=== PATIENT | male | born 1965 | race Caucasian/White ===

== ENCOUNTER 2017-12-31 17:39 | Observation (INO) | payer OTHER ==
[2017-12-31] MEDS ORDERED: NS 0.9% 1000 ML* 1,000 ML IV ONE (18:16)
[2017-12-31] MEDS ORDERED: Iohexol 350* (CONTRAST) 500 ML MDV IV ONE (18:43)
--- NOTE | 2017-12-31 19:11 | RAD ---
INDICATION: Confusion COMPARISON: External CT examination of provided TECHNIQUE: Axial source images were acquired with coronal and sagittal reconstructions. CT angiographic technique was utilized with injection of 8.4 mL Omnipaque 350. FINDINGS: Aortic arch: There are no CT angiogram abnormalities of the arch or the great vessels arising from the arch. Right carotid: The common carotid artery, carotid bifurcation, extracranial portions of the internal carotid artery, carotid artery at the skull base, carotid siphon, and carotid termination appear normal. Left carotid:The common carotid artery, carotid bifurcation, extracranial portions of the internal carotid artery, carotid artery at the skull base, carotid siphon, and carotid termination appear normal. Right middle and anterior cerebral arteries: There are no CT angiographic abnormalities of the middle or anterior cerebral arteries. Left middle and anterior cerebral arteries: There are no CT angiographic abnormalities of the middle or anterior cerebral arteries Right vertebral: The CT angiographic appearance of the vertebral artery is normal. Left vertebral: The CT angiographic appearance of the vertebral artery is normal. Basilar artery: The basilar artery is very tortuous at its origin but appears widely patent. No specific CT abnormalities are identified on the multiplanar reconstruction images. Posterior cerebral arteries: The distal distribution of the right and left posterior cerebral arteries is normal. [place]: The CT angiographic appearance of the [place] is normal. Source images show no evidence of mass or adenopathy within the neck. There are no focal brain parenchymal abnormalities or abnormal areas of enhancement. IMPRESSION: No definitive CT angiographic abnormalities. CPT II Codes: 3100F [facility]
[2017-12-31] MEDS ORDERED: Acetaminophen TAB* 325 MG PO ONE (20:05)
[2017-12-31] MEDS ORDERED: hydrALAZINE IV* 20 MG/ML VIAL IV SLOW PU PRN (20:28)
[2017-12-31] MEDS ORDERED: Thiamine IV 100 MG, Folic Acid IV* 1 MG, Multiple Vitamin IV ADULT* 10 ML in D5NS 0.9% ... IV ONE (20:28)
[2017-12-31] MEDS ORDERED: Ondansetron 40 MG VIAL* 2 MG/ML 20 ML VIAL IV PRN (20:28)
[2017-12-31] MEDS ORDERED: Aspirin 81 mg CHEW TAB* 81 MG TAB.CHEW PO ONE (20:45)
[2017-12-31] MEDS ORDERED: hydrALAZINE IV* 20 MG/ML VIAL ONE (20:53)
[2017-12-31] MEDS ORDERED: Nicotine Patch Removal NOTE PATCH OFF SCH (21:00)
[2017-12-31] MEDS ORDERED: LORazepam TAB(*) 1 MG PO SCH (21:00)
--- NOTE | 2017-12-31 21:31 | RAD ---
INDICATION: MRI screening COMPARISON: None TECHNIQUE: Pascual and lateral views of the orbits were acquired FINDINGS: Orbits: There is no evidence of intraorbital metallic density foreign body. Other: None IMPRESSION: no metallic intraorbital foreign body
--- NOTE | 2017-12-31 21:39 | ED ---
Manuel Green Tenzin, scribed for Terry Alva MD on 12/31/17 at 1834 . Headache - HPI Summary HPI Summary: Pt is a 52 years old male transferred from [facility] c/o HERNANDEZ and " feeling off" that was present when he woke up this morning. The headache is frontal and he has not been given acetaminophen. Pt has also been wearing this brace on his leg that gave him a bruise. Pt denies any focal weakness, numbness , and confusion. Pt denies abdominal pain. The patient was transferred for a CT with contrast, as this was unable to be done at [facility]. - History Of Current Complaint Chief Complaint: EDNeurologicalDeficit Stated Complaint: TRANSFER FROM [facility] Time Seen by Provider: 12/31/17 18:02 Hx Obtained From: Patient Onset/Duration: Gradual Onset Initially Headache Was: Mild Currently Pain Is: Mild Timing: Constant Location of Headache: Frontal Aggravating Factor: Nothing Allevating Factors: Nothing Associated Signs And Symptoms: Other (Noted In Comments) - feeling off - Allergies/Home Medications Allergies/Adverse Reactions: Allergies Allergy/AdvReac Type Severity Reaction Status Date / Time No Known Allergies Allergy Verified 12/31/17 17:51 Home Medications: Home Medications Carvedilol TAB* [Coreg TAB*] 12.5 mg PO BID 12/31/17 [History Confirmed 12/31/17 ] PMH/Surg Hx/FS Hx/Imm Hx Infectious Disease History: No Infectious Disease History: Denies: Traveled Outside the [place] in Last 30 Days - Family History Known Family History: Positive: Other - CVA - Social History Alcohol Use: Weekly Substance Use Type: Reports: None Smoking Status (MU): Current Every Day Smoker Review of Systems Negative: Fever Positive: Headache. Negative: Weakness All Other Systems Reviewed And Are Negative: Yes Physical Exam - Summary Physical Exam Summary: General: well-appearing, no pain distress Skin: warm, color reflects adequate perfusion, dry Head: normal Eyes: EOMI, HONG ENT: normal Neck: supple, nontender Respiratory: CTA, breath sounds present Cardiovascular: RRR Abdomen: soft, nontender Bowel: present Musculoskeletal: Patient has ecchymosis in his inner left and posterior leg that measures 6cm by 20 cm diameter. Strength/ROM intact Neurological: sensory/motor intact, A&O x3 Psychological: affect/mood appropriate Triage Information Reviewed: Yes Vital Signs On Initial Exam: Initial Vitals Temp Pulse Resp BP Pulse Ox 97.8 F 90 16 159/102 98 12/31/17 17:50 12/31/17 17:50 12/31/17 17:50 12/31/17 17:50 12/31/17 17:50 Vital Signs Reviewed: Yes Diagnostics - Vital Signs Vital Signs Temp Pulse Resp BP Pulse Ox 12/31/17 18:00 81 11 98 12/31/17 17:54 85 14 169/103 98 12/31/17 17:53 20 12/31/17 17:50 97.8 F 90 16 159/102 98 - Laboratory Lab Statement: Any lab studies that have been ordered have been reviewed, and results considered in the medical decision making process. - CT CTA Head/Neck CT Interpretation: No Acute Changes CT Interpretation Completed By: Radiologist - Impression: No definitive CT angiographic abnormalities. Dr. Alva reviewed the report. Headache Course/Dx - Course Course Of Treatment: DISCUSSED WITH DR HART, NEUROLOGY. ADMIT HOSPITALIST. CRITICAL CARE TIME LESS THAN 30 MINUTES. - Diagnoses Provider Diagnoses: TIA (transient ischemic attack) Discharge - Sign-Out/Discharge Documenting (check all that apply): Discharge/Admit/Transfer - Discharge Plan Condition: Stable Disposition: ADMITTED TO [facility] - Billing Disposition and Condition Condition: STABLE Disposition: [facility] The documentation as recorded by the Manuel bond Tenzin accurately reflects the service I personally performed and the decisions made by me, Terry Alva MD.
--- NOTE | 2017-12-31 22:02 | RAD ---
INDICATION: Headaches COMPARISON: CTA head and neck same date TECHNIQUE: sagittal T1 FLAIR, axial diffusion, axial T1 FLAIR, axial T2, axial T2 FLAIR, and SWI images were acquired. FINDINGS: Craniocervical junction: The craniocervical junction appears normal. Ventricles/sulci: There are mild cortical involutional changes. Brain parenchyma: There are moderate T2-weighted hyperintensities in the periventricular and subcortical white matter consistent with chronic microvascular ischemia. There are subtle, tiny, pontine hyperintensities also consistent with chronic change. Diffusion weighted images show no evidence of acute ischemia. Intracranial hemorrhage: There is no intracranial hemorrhage. Extra-axial spaces: There are no extra-axial fluid collections or masses. Orbits: There are no MR abnormalities of the orbital structures. Paranasal sinuses/mastoid: The paranasal sinuses are clear. The mastoid air cells are well aerated.. Vascular: No abnormalities are seen. Other: None IMPRESSION: ATROPHY WITH CHRONIC MICROVASCULAR ISCHEMIC CHANGE. NO FINDINGS OF ACUTE ISCHEMIA
[2017-12-31] MEDS: Carvedilol TAB* 6.25 MG PO SCH (22:47)
[2017-12-31] MEDS: Heparin VIAL(*) 5000 UNITS/ML VIAL (FIVE THOUSAND) SUBCUT SCH (22:50)
--- NOTE | 2017-12-31 23:00 | HP ---
CC: Dr. Bergman * HISTORY AND PHYSICAL: DATE OF ADMISSION: 12/31/17 PRIMARY CARE PROVIDER: None. ATTENDING PHYSICIAN WHILE IN THE HOSPITAL: Renita Caba DO * (report dictated by Lui Miner NP) CONSULTING NEUROLOGIST: Aron Bergman MD CHIEF COMPLAINT: 1. Difficulty with speech. 2. Confusion. HISTORY OF PRESENT ILLNESS: Mr. Goodwin is a 52-year-old male patient, who has a history of smoking, tobacco abuse, history of hypertension and he does binge drink on the weekends. He comes in to our ER today stating that this morning, he woke up, he was trying to go to work and he said he fell off, and I asked him to elaborate on this. 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 I asked him to explain this, he days says that I know a quarter is 0.25 and he could not think of that and could not do that, he was confused. He was having trouble and having difficulty with essentially cognition. He says his speech was clear, he had no facial drooping, he had no trouble walking, he just fell off. He denies having any loss of consciousness, seizure. He says days leading up to this, he had been feeling well. He has not been having any chest pain, shortness of breath; no fevers, chills. No vomiting or nausea. No reports of dysuria or frequency. He went initially to [facility] this morning. They evaluated him and it was noted that at CT scan there was concern for his basilar artery. He was sent here to the [facility] for CTA and further neurological evaluation. He is evaluated in the ER today. Again, he is saying he was feeling well perhaps when he woke up this morning, he was feeling off and feeling disconnected. Denied having any focal weaknesses. There was concern for possible TIA. We were asked to evaluate for admission. PAST MEDICAL HISTORY: Significant for: 1. Hypertension. 2. Tobacco abuse. 3. ETOH abuse. PAST SURGICAL HISTORY: 1. He has had an appendectomy. 2. He has had a right knee arthroscopy x2. 3. Hernia repair. MEDICATIONS: Home meds include: 1. Carvedilol 12.5 mg p.o. twice a day. 2. Aleve 1 tablet twice a day as needed. ALLERGIES TO MEDICATIONS: Include PENICILLIN G. FAMILY HISTORY: Mother had hypertension and stomach cancer. Father had history of diabetes and colon cancer. SOCIAL HISTORY: He is a smoker. He has been smoking for 35 years. He smokes about half a pack a day. He does drink alcohol heavily on the weekend basis, he says. He denies any recreational drug abuse. Surrogate decision maker is his sister. REVIEW OF SYSTEMS: There is no documented fever. He denies having any significant weight change. There was no double vision. There is no ear discharge. He denies having any rhinorrhea. There was no sore throat. No thyroid enlargement. Denies having any chest pain. There is no orthopnea. There is no nocturnal dyspnea. He denies having any abdominal pain. There was no nausea, no vomiting. No dysuria, no frequency. No seizure. No loss of consciousness. No pruritus, no skin ulceration. Review of 14 systems completed , all others negative. PHYSICAL EXAMINATION GENERAL: At this time, Mr. Goodwin is a 52-year-old male patient. He is sitting in the ED stretcher. He does not appear to be in any acute distress. VITAL SIGNS: Current vital signs, blood pressure 161/118, pulse 76, respirations 18, O2 sat 97%, temperature 97.8. HEENT: Head: Atraumatic, normocephalic. Eyes: EOMs are intact. Sclerae are anicteric and not pale. Throat: Oral mucosa appears to be moist. No oropharyngeal erythema. NECK: Supple. LUNGS: Clear to auscultation bilaterally. No wheezes, rales, or rhonchi. HEART: Sounds S1, S2. Regular rate and rhythm. No murmurs, rubs, or gallops. ABDOMEN: Soft. It was flat, nontender. Bowel sounds were present. EXTREMITIES: Pulses were 2+ throughout. He is moving all 4 extremities with 5/ 5 strength. NEUROLOGIC: The patient is awake, he is alert, he is oriented x3. His speech is clear. Vkbzfy-pr-atez intact bilaterally. Cranial nerves II through XII were intact. His rojoqq-ch-qgcq, xnln-tz-osyd intact bilaterally. Tobacco Wrapping Machine Tender equal. Tongue is midline. Speech was clear. No facial drooping. No gross focal deficits were seen. SKIN: His skin was grossly intact. DIAGNOSTIC STUDIES/LAB DATA: In [place] he had an EKG which did show a normal sinus rhythm rate of 80. No ST elevations or T wave inversions were noted. CT brain showed very ectatic and hyperattenuating dense basilar artery, question physiologic hyperdensity or thrombus. The patient also had a chest x-ray, impression: No acute cardiopulmonary disease. He did have labs at [facility]: Sodium 139, potassium 2.8, chloride 105, bicarb 27, BUN 10, creatinine 0.70, glucose 191, calcium 8.5, mag 1.9. Total bili 0.4. AST 19, ALT 27. Troponin 0. Alk phos 37. CK 258, CK-MB 4.2. Albumin 3.7. D-dimer negative. INR 0.88. PTT 25. WBC of 3.7, RBC of 4.41, hemoglobin of 13.5, hematocrit 43, platelet count 228. Alcohol level 210. Old medical records reviewed. ASSESSMENT AND PLAN: Mr. Goodwin is a 52-year-old male patient coming in to the emergency department today initially transferred from [facility] for concerns of an abnormal CT. He underwent the CTA today. Our CTA today was read as a normal impression. 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 We were asked to evaluate for admission. He will be admitted under observation status for: 1. Altered mental status. There was concern for transient ischemic attack, but I suspect that alcohol intoxication is probably the contributing factor to his symptoms this morning, but because he is a smoker, has history of hypertension, I do think that we should get an MRI and an echo with bubble study tomorrow. I will place the patient on aspirin. Try to get better blood pressure control and we will treat him for blood pressures systolics greater than 200, diastolics greater than 110. I am going to go ahead and give him some hydralazine and carvedilol down here in the ED. Continue to follow. 2. Ethanol abuse. Again at this point, his alcohol level is 210 this morning. This is probably contributing to his symptoms. I will go ahead and put him on [facility] protocol and I will give him some thiamine and folic acid. Check a B12 level as well. 3. Hypertension. Again, not well controlled. In the setting of possible transient ischemic attack, I will let it run high and I will treat for systolics greater than 200, diastolics greater than 110 is what I will treat for. I did order his carvedilol and p.r.n. hydralazine. 4. Altered mental status. I also did order aspirin. 5. DVT prophylaxis. I have ordered SCDs. 6. Code status. Full code. 7. Tobacco abuse. I did order nicotine and encouraged cessation. 8. Fluids, electrolytes, and nutrition. Healthy diet. TIME SPENT: On the admission was approximately 60 minutes, greater than half the time was spent [id number] with the patient obtaining my history and physical; other half time was spent going over the plan of care with the patient and implementing plan of care. I did discuss the plan of care with my attending, Dr. Caba; she is in agreement. LUI MINER, NIKOLAS [id number]/CPS #: [id number] NANCY
[2018-01-01] MEDS: Acetaminophen TAB* 325 MG PO PRN ×2 (00:01→08:02)
[2018-01-01 05:48] LABS: ABS Basophils 0 10^3/ul (0-0.2); ABS Eosinophils 0.1 10^3/ul (0-0.6); ABS Lymphocytes 1.2 10^3/ul (1.0-4.8); ABS Monocytes 0.7 10^3/ul (0-0.8); ABS Neutrophils 3.2 10^3/ul (1.5-7.7); ABS Nucleated RBC 0 10^3/ul; Eosinophil % 1.8 % (0-6); Hematocrit 41 % (42-52); Hemoglobin 14.2 g/dl (14.0-18.0); Lymphocyte % 22.9 % (25-47); Mean Corpuscular HGB Conc 35 g/dl (31-36); Mean Corpuscular Hemoglobin 35 pg (27-31); Mean Corpuscular Volume 99 fL (80-94); Mean Platelet Volume 7.8 um3 (7.4-10.4); Nucleated Red Blood Cells % 0; Platelet Count 205 10^3/ul (150-450); Red Blood Count 4.07 10^6/ul (4.0-5.4); Red Cell Distribution Width 13 % (10.5-15); White Blood Count 5.2 10^3/ul (3.5-10.8)
[2018-01-01 06:01] LABS: EGFR Non-African American 112.8 (>60)
[2018-01-01 06:03] LABS: INR 0.87 (0.77-1.02)
[2018-01-01] MEDS: Heparin VIAL(*) 5000 UNITS/ML VIAL (FIVE THOUSAND) SUBCUT SCH ×2 (06:16→13:35)
[2018-01-01] MEDS: Carvedilol TAB* 6.25 MG PO SCH (07:14)
[2018-01-01] MEDS ORDERED: Carvedilol TAB* 6.25 MG PO SCH (07:33)
--- NOTE | 2018-01-01 07:45 | PN ---
Subjective Date of Service: 01/01/18 Interval History: No more sx's. He states he was drinking the night before his admission but doesn't know how much. He states he was in alcohol rehab 30 yrs ago. Objective Active Medications: Acetaminophen (Tylenol Tab*) 650 mg PO Q4H PRN PRN Reason: PAIN Last Admin: 01/01/18 00:01 Dose: 650 mg Aspirin (Aspirin Ec Tab*) 81 mg PO DAILY [facility] Last Admin: 01/01/18 07:14 Dose: 81 mg Folic Acid (Folvite Tab*) 1 mg PO DAILY [facility] Last Admin: 01/01/18 07:14 Dose: 1 mg Heparin Sodium (Porcine) (Heparin Vial(*)) 5,000 units SUBCUT Q8HR [facility] Last Admin: 01/01/18 06:16 Dose: 5,000 units Lorazepam (Ativan Tab(*)) 0 - 6 mg PO .PER [facility] PROTOCOL [facility] PRN Reason: Protocol Multivitamins/Minerals (Theragran/Minerals Tab*) 1 tab PO DAILY [facility] Last Admin: 01/01/18 07:14 Dose: 1 tab Nicotine (Nicotine Patch 21 Mg/24 Hr*) 1 patch TRANSDERM DAILY@0800 [facility] Ondansetron HCl (Zofran 40 Mg Vial*) 4 mg IV Q6H PRN PRN Reason: NAUSEA Pharmacy Profile Note (Nicotine Patch Removal Note*) 1 note PATCH OFF 2100 [facility] Last Admin: 12/31/17 22:50 Dose: Not Given Thiamine HCl (Vitamin B-1 Tab*) 100 mg PO DAILY [facility] Last Admin: 01/01/18 07:14 Dose: 100 mg Vital Signs - 8 hr 01/01/18 01/01/18 01/01/18 00:00 00:19 02:00 Temperature 98.1 F Pulse Rate 82 Respiratory 16 16 16 Rate Blood Pressure 149/95 (mmHg) O2 Sat by Pulse 99 Oximetry 01/01/18 01/01/18 01/01/18 02:09 04:00 04:21 Temperature 97.7 F 97.3 F Pulse Rate 81 73 Respiratory 16 16 16 Rate Blood Pressure 142/97 143/94 (mmHg) O2 Sat by Pulse 99 99 Oximetry 01/01/18 01/01/18 06:00 06:10 Temperature 97.6 F Pulse Rate 79 Respiratory 16 16 Rate Blood Pressure 167/110 (mmHg) O2 Sat by Pulse 100 Oximetry Oxygen Devices in Use Now: None Appearance: Alert, supine in bed. In fair spirits. Looks comfortable. Eyes: No Scleral Icterus Neck: NL Appearance and Movements; NL JVP, No Thyroid Enlargement, Masses Respiratory: Symmetrical Chest Expansion and Respiratory Effort, Clear to Auscultation, Clear to Percussion Cardiovascular: NL Sounds; No Murmurs; No JVD, RRR, No Edema Extremities: No Edema, No Clubbing, Cyanosis, - Skin: No Rash or Ulcers, No Nodules or Sclerosis, - Neurological: Alert and Oriented x 3, NL Sensation Result Diagrams: 01/01/18 04:42 01/01/18 06:24 Assess/Plan/Problems-Billing Assessment: - Patient Problems (1) Confusion Current Visit: Yes Status: Acute Code(s): R41.0 - DISORIENTATION, UNSPECIFIED SNOMED Code(s): 157526692 Comment: Patient was the only one awake in the house when he got up a 4 AM and drove himself to work. After 2 minutes at work he drove himself to the hospital. MRI and CTA both unremarkable. Echo with bubble study pending. (2) HTN (hypertension) Current Visit: Yes Status: Acute Code(s): I10 - ESSENTIAL (PRIMARY) HYPERTENSION SNOMED Code(s): 17647912 Comment: Patient recalls being on carvedilol and lisinopril but hasn't take either for about 6 months(?) due to the cost. Start metoprolol and lisinopril. (3) Alcohol abuse Current Visit: Yes Status: Acute Code(s): F10.10 - ALCOHOL ABUSE, UNCOMPLICATED SNOMED Code(s): 90798983 Comment: consult requested. (4) Tobacco abuse Current Visit: Yes Status: Acute Code(s): Z72.0 - TOBACCO USE SNOMED Code( s): 541425852 Comment: Pt advised to quit smoking and avoid second hand smoke. Nicotine patch ordered.
[2018-01-01] MEDS ORDERED: Nicotine PATCH 21 MG/24 HR* PATCH TRANSDERM SCH (08:00)
[2018-01-01] MEDS: Nicotine PATCH 14 MG/24 HR* PATCH TRANSDERM SCH ×2 (08:00→08:01)
[2018-01-01] MEDS ORDERED: Folic Acid TAB* 1 MG PO SCH (09:00)
[2018-01-01] MEDS ORDERED: Multivitamins/Minerals TAB PO SCH (09:00)
[2018-01-01] MEDS ORDERED: Thiamine TAB* 100 MG TAB PO SCH (09:00)
[2018-01-01] MEDS ORDERED: Lisinopril TAB* 5 MG PO SCH (09:00)
[2018-01-01] MEDS ORDERED: Aspirin EC TAB* 81 MG TAB.EC PO SCH (09:00)
[2018-01-01] MEDS ORDERED: Metoprolol Tartrate TAB* 25 MG PO SCH (09:00)
--- NOTE | 2018-01-01 11:40 | CONS ---
CONSULTATION REPORT: DATE OF CONSULT: 01/01/2018. PATIENT OF: [place]. HISTORY OF PRESENT ILLNESS: A 52-year-old right-handed man who I was asked to consult on for an episode of confusion yesterday morning when he went to work. He said he was unable to do fractions which he usually does on a daily basis. He had other cognitive issues, but his speech was clear and he had no focal deficits. He was seen at [facility] and was felt to have global confusion and I was contacted about a potentially abnormal basilar artery. I asked the nurse practitioner to send the films to [place] to see if there was abnormality in it and if so, if he needed a CTA, to be sent there rather than [place] since if we needed an intervention for this. He will be ultimately transferred to [place]. I then spoke afterwards to the nurse practitioner at [place], who was unclear as to what [place] had said, but then reconfirmed that they did not think there was any vascular abnormality acutely requiring a CTA. He was therefore transferred here. He still feels a little fussy, but no specific abnormalities. He has never had a prior stroke. PAST MEDICAL HISTORY: His past history is significant for alcohol abuse and he was in rehab years ago. He notes that he was drinking heavily the night before , watching a hockey game and does binge drink on weekends. He also smokes and has hypertension. He has had an appendectomy, right knee arthroscopy, herniorrhaphy. MEDICATIONS: He apparently does not take meds at home, although they are listed as carvedilol 12.5 twice a day and Aleve one twice a day as needed. PRIMARY CARE PHYSICIAN: He has no primary care physician at this point. ALLERGIES: He is allergic to PENICILLIN. FAMILY HISTORY: Mother had hypertension, stomach cancer. Father had diabetes and colon cancer. SOCIAL HISTORY: He smoked for 35 years about half a pack a day. He drinks heavily on weekends. No other substance abuse. He has had no balance problems. No GI bleeding. REVIEW OF SYSTEMS: Negative in all 14 spheres other than in HPI. PHYSICAL EXAM: Temperature 97.8, pulse 77, respirations 16, blood pressure 149/ 94. He is alert and oriented with normal speech and comprehension. Cranial nerves II through XII are intact. Fundi shows sharp discs. Motor exam reveals normal tone, strength, coordination, and gait. Romberg is minimally unsteady. Sensation was intact to light touch. Reflexes were trace to 1 with downgoing toes. Finger-to- nose was intact. Chest: Clear. Cardiovascular: Regular rate and rhythm. Abdomen is soft with positive bowel sounds. There was no liver fat. DIAGNOSTIC STUDIES/LAB DATA: I reviewed his MRI scan, which showed some significant atrophy including in his cerebellum and some chronic microvascular ischemic changes. There was no acute stroke. His CTA was done and was normal. A CBC with a hematocrit of 41, MCV of 99. INR normal. LDL 47, vitamin B12 of 284. Sodium was 138. He has had an echo that is pending. Of note, he had an alcohol level at [facility] 210. IMPRESSION AND PLAN: Mr. Goodwin most likely drunk when he came into [facility] and it sounds like he has an ongoing chronic alcohol problem. His MRI scan in this setting most likely especially with cerebellar atrophy noted in somebody who is 52 probably represents chronic alcoholism. This is not a story of stroke. He has had some white matter disease on his MRI scan and he is only 52 and this probably represents mostly his chronic hypertension and tobacco use. I discussed with him that his cigarette smoking and drinking is likely causing changes on his brain, which can cause significant debility and neurologic problems as time goes by. My strongest recommendation is he gets a general medical doctor as outpatient to treat his hypertension, to help him with smoking cessation and to help him with his alcohol issues. He does not want rehab at this time. Discussed with the white matter disease, it would be reasonable for him to be on a baby aspirin if he follows with a doctor as outpatient so that if and when he develops GI issues that can be reassessed. The alcoholism puts him at risk for GI bleeding. I do not want to give him aspirin if there are signs that he may actually be at high risk for that. I discussed the case with Dr. Preciado. Thank you for sharing this case. [id number]/[facility] #: [id number] NANCY
--- NOTE | 2018-01-01 12:22 | ECHO ---
Patient: CHAD GUADALUPE [facility] Rec#: [id number] : 1965 Date: 01/01/2018 Age: 52y Height: 182.88 cm / 72.0 in Weight: 80.29 kg / 177.0 lbs Sex: M BSA: 2.02 Room#: 433 Admit Date#: 12/31/2017 Type: Inpatient Referring: Lui Miner NP Reading: Edward Umana MD [employer] Erector: Leslie Arriaga RD Transthoracic Echocardiogram Indication: TIA BP: 167/110 HR: 72 Rhythm: NSR Findings History: HTN, smoker, and ETOH abuse. Technical Comments: The study quality is good. Completed at 1030. Left Ventricle: The left ventricular chamber size is normal. There is no left ventricular hypertrophy. Global left ventricular wall motion and contractility are within normal limits. Left ventricular systolic function is at the lower limits of normal. The estimated ejection fraction is 50-55%. Abnormal left ventricular diastolic function is observed. Abnormal left ventricular diastolic filling is observed, consistent with impaired relaxation. Left Atrium: The left atrium is moderately dilated. Right Ventricle: Moderator Band present. The right ventricle is mildly dilated. The right ventricular global systolic function is low normal. Right Atrium: The right atrium is moderately dilated. There is no patent foramen ovale visualized. There is no evidence of patent foramen ovale shunting. A patent foramen ovale is not demonstrated with color Doppler and agitated contrast. Aortic Valve: The aortic valve is trileaflet. There is no evidence of aortic valve thickening. There is no evidence of aortic regurgitation. There is no evidence of aortic stenosis. Mitral Valve: The mitral valve leaflets are mildly thickened. There is trace to mild mitral regurgitation. There is no evidence of mitral stenosis. Tricuspid Valve: The tricuspid valve leaflets are normal. There is a physiologic tricuspid regurgitation. Unable to estimate the right ventricular systolic pressure. There is no tricuspid stenosis. Pulmonic Valve: The pulmonic valve appears normal. There is a trace pulmonic regurgitation. There is no pulmonic stenosis. Pericardium: There is no significant pericardial effusion. Aorta: There is no dilatation of the ascending aorta. There is no dilatation of the aortic arch. The aortic root is normal in size. Pulmonary Artery: The main pulmonary artery appears normal. Venous: The inferior vena cava is dilated. There is a greater than 50% respiratory change in the inferior vena cava dimension. Contrast: Normal saline was used as contrast for the bubble study. Images 11 and 12. Intravenous contrast was used to help determine presence of intracardiac shunting. Summary: There was not any prior study for comparison. Conclusions Global left ventricular wall motion and contractility are within normal limits. Left ventricular systolic function is at the lower limits of normal. The estimated ejection fraction is 50-55%. The right ventricular global systolic function is low normal. A patent foramen ovale is not demonstrated with color Doppler and agitated contrast. There is no evidence of aortic regurgitation. There is trace to mild mitral regurgitation. There is a physiologic tricuspid regurgitation. Unable to estimate the right ventricular systolic pressure. There is no significant pericardial effusion. Measurements Name Value Normal Range RVIDd (AP) 2D 3 cm (0.9 - 2.6) RVDdMajor (2D) 4.6 cm (2.2 - 4.4) RAd ISD 4CH 5.8 cm (3.4 - 4.9) RA (A4C)W 4.8 cm (2.9 - 4.6) IVSd (2D) 1 cm (0.6 - 1) LVPWd (2D) 0.9 cm (0.6 - 1) LVIDd (2D) 4.7 cm (3.6 - 5.4) LVIDs (2D) 3.9 cm - LV FS (2D) 17 % (25 - 45) Aortic Annulus 2.2 cm (1.4 - 2.6) Ao root diameter (2D) 3.5 cm (2.1 - 3.5) Ascending Ao 3.3 cm (2.1 - 3.4) Aortic arch 2.8 cm (1.8 - 3.4) LA dimension (AP) 2D 3.4 cm (2.3 - 3.8) LAd ISD 4CH 5.9 cm (2.9 - 5.3) LA ISD 4CH W 4.6 cm (2.5 - 4.5) Name Value Normal Range LA ESV SP 4CH (A/L) 71 ml - LA ESV SP 2CH (A/L) 111 ml - LA ESV BP (A/L) 92 ml - LA ESV BP (A/L) index 46 ml/m2 - LA ESV SP 4CH (MOD) 68 ml - LA ESV SP 2CH (MOD) 103 ml - Name Value Normal Range MV E-wave Vmax 0.56 m/sec - MV deceleration time 114.3 msec - MV A-wave Vmax 0.74 m/sec - MV E:A ratio 0.74 ratio - LV septal e' Vmax 0.06 m/sec - LV lateral e' Vmax 0.1 m/sec - LV E:e' septal ratio 9.33 ratio - LV E:e' lateral ratio 5.6 ratio - Name Value Normal Range AV Vmax 1.33 m/sec - AV VTI 26.5 cm - AV peak gradient 7.08 mmHg - AV mean gradient 3.59 mmHg - LVOT Vmax 0.81 m/sec - LVOT VTI 16.83 cm - LVOT peak gradient 2.67 mmHg - LVOT mean gradient 1.39 mmHg - WANDA Vmax 0.64 m/sec - Name Value Normal Range IVC diameter 2.2 cm - Name Value Normal Range PV Vmax 0.89 m/sec - PV peak gradient 3.17 mmHg -
[2018-01-01 13:14] VITALS: BP 150/93
--- NOTE | 2018-01-02 07:08 | DS ---
DISCHARGE SUMMARY: DATE OF ADMISSION: DATE OF DISCHARGE: 01/01/18 HOSPITAL COURSE: This 52-year-old man drove to the [place] because he was not feelin g right. He had gotten up at 4:00 a.m.; is normal for him to get ready to go to work. No one else w as up in the house. He drove to work and after 2 minutes, he felt he was not functioning properly. He went to the emergency room. By secondhand report, his alcohol level was 210 there. He was referre d here for possible TIA. He was seen in consultation by Dr. Bergman. He was placed on telemetry. He had a CT scan of the bra in at [place]. He had a head CTA here as well as transthoracic echocardiogram and an MRI. There we re no significant abnormalities. The CT scan of the brain, there was a question of thrombus in the b asilar artery, but the head CTA did not show any occlusion on the arteriogram. The patient was quite clear mentally here. He was seen by the social work case manager. He was encouraged to g et a primary care provider. I note he had not taken his medications for many months; he says due to the expense, although he has Medicaid. I changed him to medications which will definitely be covered by Medicaid. He should get a primary care doctor for his hypertension. The social work case manager will talk to him about his alcohol problem as well. FINAL DIAGNOSES: 1. Alcohol intoxication. 2. Hypertension. 3. Tobacco use disorder. DISCHARGE MEDICATIONS: 1. Aspirin 81 mg daily. 2. Lisinopril 2.5 mg daily. 3. Metoprolol 25 mg b.i.d. 4. Nicotine patch 14 mg per day. [id number]/[facility] #: [id number]
== END 2018-01-01 16:10 | disposition home or self-care (01) ==
LOC: ED 17:39 → MEDTELE 20:22
PROVIDERS: ADMIT Hospitalist; ATTEND Internal Medicine
DX: F10.129 Alcohol abuse with intoxication, unspecified (principal); R51 Headache; I10 Essential (primary) hypertension; F17.210 Nicotine dependence, cigarettes, uncomplicated; Z79.82 Long term (current) use of aspirin; R41.0 Disorientation, unspecified; Z90.89 Acquired absence of other organs
CPT/HCPCS: 36415; 70030; 70496; 70498; 70551; 80048; 80061; 82607; 83036; 85025; 85610; 93306; 96374; 99285; A9270-GY; G0378; J0360; J1644; J3411; Q9967